=== PATIENT | male | born 1985 | race Caucasian/White ===

== ENCOUNTER 2021-04-19 08:24 | Emergency (ER) | payer SELFPAY ==
--- NOTE | 2021-04-19 08:54 | DI.RAD.S_ITS ---
PROCEDURE: XR ANKLE RT MIN 3V INDICATIONS: pain after twisting injury TECHNIQUE: 3 views of the ankle were acquired. COMPARISON: None. FINDINGS: Bones: There is an oblique fracture of the distal fibular metaphysis extending into the mortise joint with minimal displacement. No widening of the medial clear space is seen. Possible tiny minimally displaced fracture fragment of the posterior malleolus seen on lateral view. A small plantar calcaneal spur is present. Soft tissues: Multiple ossifications are seen projecting over the mortise joint, consistent with osteochondromatosis. Soft tissue edema is seen surrounding the ankle. IMPRESSION: 1. Minimally displaced oblique intra-articular fracture of the distal fibula. 2. Suspected tiny minimally displaced intra-articular fracture of the posterior tibia. 3. Synovial osteochondromatosis. Dictated by: Santiago Allen M.D. on 04/19/2021 at 9:15 Approved by: Santiago Allen M.D. on 04/19/2021 at 9:18
--- NOTE | 2021-04-19 08:54 | ED.GENADULT ---
HPI - General Adult General Chief complaint: Extremity Injury, Lower Stated complaint: rolled ankle t-4 Time Seen by Provider: 04/19/21 08:39 Source: patient Mode of arrival: Ambulatory Limitations: no limitations History of Present Illness HPI narrative: Patient is a 35-year-old male who approximately 4 days ago rolled his right ankle while at work. He has been ambulatory on it since then but has had swelling and bruising and difficulty walking. No specific injury in the past. No knee tenderness. Has had to wear a slipper because of the swelling Related Data Allergies Allergy/AdvReac Type Severity Reaction Status Date / Time Tetanus Vaccines and Toxoid Allergy Severe anaphylaxis Verified 04/19/21 10:28 [TETANUS VACCINES AND TOXOID] Review of Systems Musculoskeletal Musculoskeletal: Reports system reviewed and no additional complaints, except as documented and Reports as per HPI Integumentary/Breasts Skin/Breast: Reports system reviewed and no additional complaints, except as documented and Reports as per HPI Neurologic Neurologic: Reports system reviewed and no additional complaints, except as documented and Reports as per HPI Hematologic/Lymphatic On Anticoagulants: No Patient History Medical History Current smoker (03/13/17) Lipoma of head (03/13/17) Family History (Updated 03/15/17 @ 00:00 by Conversion Provider) Mother Age: 62 MS (multiple sclerosis) Cervical cancer Social History (Updated 04/19/21 @ 09:14 by Vaughn Lerma DO) lives independently: Yes Smoking Status: Current every day smoker Exam Initial Vital Signs Initial Vital Signs: Vital Signs Temperature 98.2 F 04/19/21 09:06 Pulse Rate 68 04/19/21 09:06 Respiratory Rate 18 04/19/21 09:06 Blood Pressure 136/86 04/19/21 09:06 Pulse Oximetry 99 04/19/21 09:06 Cardio Pulses: dorsalis pedis present on the right Skin Other: Bruising along the lateral aspect of the right foot and along the toes. Neuro Sensory Exam: no sensory deficits noted Extrem Other: No proximal fibula tenderness. Has tenderness to palpation along the lateral malleolus. Mild tenderness along the medial malleolus. Achilles tendon is intact. No tenderness along the Lisfranc joint. No tenderness along the 5th metatarsal. Psych Appearance: grossly normal and well kempt Procedures Orthopedic Splinting/Casting Injury #1: Side: right Lower Extremity Injury Location: ankle Lower Extremity Immobilizer: posterior splint and stirrup splint Other Orthopedic Equipment: crutches Post splinting neuro exam: intact Post splinting vascular exam: intact Placed by: Provider Course Orders Ordered: ED Orders 04/19/21 08:54 XR ankle RT min 3V Stat 04/19/21 09:26 CT LE RT wo con Stat Vital Signs Vital signs: Vital Signs - 8 hr 04/19/21 09:06 Temperature 98.2 F Pulse Rate 68 Respiratory Rate 18 Blood Pressure 136/86 Pulse Oximetry 99 Medical Decision Making Imaging Data Extremity x-ray #1: Radiologist's Impression: [address] [address] XRay Report Signed Patient: Jarvis Patel MR#: [id number] : 1985 Acct:[id number] Age/Sex: 35 / M Date of Service: 04/19/21 Loc: ED Accession Number: [id number] ?? Procedure: XR ankle RT min 3V Ordering Provider: Vaughn Lerma D.O. PROCEDURE:? XR ANKLE RT MIN 3V ? INDICATIONS:? pain after twisting injury ? TECHNIQUE:? 3 views of the ankle were acquired.? ? COMPARISON:? None. ? FINDINGS:? ? Bones:? There is an oblique fracture of the distal fibular metaphysis extending into the mortise joint with minimal displacement.? No widening of the medial clear space is seen.? Possible tiny minimally displaced fracture fragment of the posterior malleolus seen on lateral view.? A small plantar calcaneal spur is present. ? Soft tissues:? Multiple ossifications are seen projecting over the mortise joint, consistent with osteochondromatosis.? Soft tissue edema is seen surrounding the ankle. ? ? IMPRESSION:? 1. Minimally displaced oblique intra-articular fracture of the distal fibula. 2. Suspected tiny minimally displaced intra-articular fracture of the posterior tibia. 3. Synovial osteochondromatosis.? Dictated by: Santiago Allen M.D. on 04/19/2021 at 9:15 ? ? Approved by: Santiago Allen M.D. on 04/19/2021 at 9:18? CT LE: Radiologist's Impression: [address] [address] [address] Scan Report Signed Patient: Jarvis Patel MR#: [id number] : 1985 Acct:[id number] Age/Sex: 35 / M Date of Service: 04/19/21 Loc: ED Accession Number: [id number] ?? Procedure: CT LE RT wo con Ordering Provider: Vaughn Lerma D.O. PROCEDURE:? CT LE RT WO CON ? INDICATIONS:? R ankle fracture ? TECHNIQUE:? Noncontrast 1-1.5 mm axial sections acquired from above the tibiotalar joint to the bottom of the calcaneus, with coronal and sagittal reformats.? ? COMPARISON:? [facility], CR, XR ANKLE RT MIN 3V, 04/19/2021, 8:55. ? FINDINGS:? Image quality:? Excellent.? ? Bones:? There is a minimally displaced oblique fracture of the distal fibular metaphysis extending into the mortise joint.? The distal fracture fragment is displaced by up to 2 mm posteriorly and laterally.? There appears to be a possible ossified loose body within the distal portion of the fracture line. ? A small fracture line is seen at the posterior medial aspect of the lateral tibial plateau extending into the tibiotalar articular surface without step-off at the articular surface.? Some of the margins of this fracture appear to be corticated, and this could represent a subacute or chronic injury.? Similarly, a linear lucency is seen at the anterolateral aspect of the tibial plafond and with partial osseous bridging that represent the sequela of a prior injury. ? A well-defined lucency is seen within the medial tibia with thin sclerotic margins and extension to the medial cortex, likely representing degenerative cystic changes or intraosseous ganglion. ? Soft tissues:? Multiple ossified intra-articular loose bodies are seen surrounding the ankle, consistent with synovial osteochondromatosis.? Calcifications also extend into the sinus tarsi.? The articular cartilages, ligaments, and tendons are not well evaluated with CT.? The musculature of the foot and lower leg are normal in bulk.? Diffuse subcutaneous soft tissue edema is seen throughout the ankle. ? IMPRESSION:? 1. Minimally displaced acute intra-articular fracture of the distal fibula with up to 2 mm displacement.? A small ossified loose body appears to be located within the distal fracture line. ? 2. Small nondisplaced fractures of the posterior medial tibial plafond and anterolateral tibial plafond appear to have healing changes and may be subacute or chronic. ? 3. Numerous ossified loose bodies surrounding the ankle are most likely secondary to primary or secondary synovial osteochondromatosis. ? 4. Circumscribed lucency in the medial talar dome most likely represents degenerative cystic changes or an intraosseous ganglion. ? ? Dictated by: Santiago Allen M.D. on 04/19/2021 at 9:52 ? ? Approved by: Santiago Allen M.D. on 04/19/2021 at 10:05? MDM Narrative Medical decision making narrative: Patient does have an obvious fibula fracture. There was some concern on the x-ray about a tibia fracture as well. He does have tenderness over the posterior portion of his tibia and also over the medial malleolus. The CT scan was performed which showed findings that could be consistent with a old injury however given the location of his discomfort there is some concern about an acute injury as well. Because of this he was placed in a splint. Will be made nonweightbearing. He was given follow-up with Orthopedics. He was given return precautions. He expressed understanding and agreement. Discharge Plan Departure Patient Disposition: Home Clinical Impression: Ankle fracture, right Instructions: How to Use Crutches, DI for Ankle Fracture, How to Take Care of Your Splint Activity Restrictions/Additional Instructions: Because of the suspicion for a tibia fracture we placed the splint to protect this. You should be nonweightbearing on your right ankle. The splint that was placed today should be kept clean and dry. Treat it like a cast. Call the Orthopedic Department at the number provided below for a follow-up in the next week. Return to the emergency department for any new or worsening symptoms Referrals: Nataliya Bonner MD [Physician] -
[2021-04-19 09:06] VITALS: BP 136/86; PULSE 68; RESP 18; TEMP 36.8; O2SAT 99; BMI 24.4
--- NOTE | 2021-04-19 09:26 | DI.CT.S_ITS ---
PROCEDURE: CT LE RT WO CON INDICATIONS: R ankle fracture TECHNIQUE: Noncontrast 1-1.5 mm axial sections acquired from above the tibiotalar joint to the bottom of the calcaneus, with coronal and sagittal reformats. COMPARISON: [facility], CR, XR ANKLE RT MIN 3V, 04/19/2021, 8:55. FINDINGS: Image quality: Excellent. Bones: There is a minimally displaced oblique fracture of the distal fibular metaphysis extending into the mortise joint. The distal fracture fragment is displaced by up to 2 mm posteriorly and laterally. There appears to be a possible ossified loose body within the distal portion of the fracture line. A small fracture line is seen at the posterior medial aspect of the lateral tibial plateau extending into the tibiotalar articular surface without step-off at the articular surface. Some of the margins of this fracture appear to be corticated, and this could represent a subacute or chronic injury. Similarly, a linear lucency is seen at the anterolateral aspect of the tibial plafond and with partial osseous bridging that represent the sequela of a prior injury. A well-defined lucency is seen within the medial tibia with thin sclerotic margins and extension to the medial cortex, likely representing degenerative cystic changes or intraosseous ganglion. Soft tissues: Multiple ossified intra-articular loose bodies are seen surrounding the ankle, consistent with synovial osteochondromatosis. Calcifications also extend into the sinus tarsi. The articular cartilages, ligaments, and tendons are not well evaluated with CT. The musculature of the foot and lower leg are normal in bulk. Diffuse subcutaneous soft tissue edema is seen throughout the ankle. IMPRESSION: 1. Minimally displaced acute intra-articular fracture of the distal fibula with up to 2 mm displacement. A small ossified loose body appears to be located within the distal fracture line. 2. Small nondisplaced fractures of the posterior medial tibial plafond and anterolateral tibial plafond appear to have healing changes and may be subacute or chronic. 3. Numerous ossified loose bodies surrounding the ankle are most likely secondary to primary or secondary synovial osteochondromatosis. 4. Circumscribed lucency in the medial talar dome most likely represents degenerative cystic changes or an intraosseous ganglion. Dictated by: Santiago Allen M.D. on 04/19/2021 at 9:52 Approved by: Santiago Allen M.D. on 04/19/2021 at 10:05
== END 2021-04-19 11:19 | disposition home or self-care (01) ==
PROVIDERS: Emergency Provider Emergency Medicine
DX: S82.831A Other fracture of upper and lower end of right fibula, initial encounter for closed fracture (principal); X50.1XXA Overexertion from prolonged static or awkward postures, initial encounter
CPT/HCPCS: 29515; 73610; 73700; 99283; 99284

== ENCOUNTER 2022-10-27 06:49 | Emergency (ER) | payer OTHER, MEDICAID, SELFPAY ==
[2022-10-27 06:55] VITALS: BP 158/99; PULSE 83; RESP 18; TEMP 36.7; O2SAT 99; BMI 25.7
--- NOTE | 2022-10-27 07:29 | PC.NURSE ---
Pt states he was at work yesterday and sneezed, states he heard a pop in his lower back and then he went down to his knees. Pt states he's taken ibuprofen but did not improve symptoms.
[2022-10-27 07:31] VITALS: PULSE 81; RESP 18; O2SAT 97
--- NOTE | 2022-10-27 08:20 | ED_ITS ---
HPI - Back Pain/Injury General Chief Complaint: Back Pain/Injury Stated Complaint: back pain Time Seen by Provider: 10/27/22 06:50 Source: patient Mode of arrival: Ambulatory Limitations: no limitations History of Present Illness HPI Narrative: This is a 37-year-old male with history tobacco abuse who has had chronic back pain on and off but yesterday at work had a very large sneeze and had a feeling of a pop and pain over his right lateral ribs. Patient states pain has been persistent any sort of movement makes it much worse, coughing sneezing increases his pain. He has a little bit of old bruising but he states that is much lower. Patient states he has not had any fevers or chills, no cold cough or congestion. Does not feel short of breath. He is pain with movement. Patient states he felt a pop. And had sudden increase in pain over the right lateral ribs. States the pain is not really in his midline or back area or in his lower back. He is had no numbness, tingling or weakness. Patient states uses tobacco, denies any other medical issues or daily medications. Denies any surgeries. Allergy to tetanus vaccine. Patient family request no narcotic pain medication. He has been using lifting belt. Related Data Previous Rx's Medication Instructions Recorded meloxicam 7.5 mg tablet 7.5 mg PO BID PRN pain #20 tabs 10/27/22 Allergies Allergy/AdvReac Type Severity Reaction Status Date / Time Tetanus Vaccines and Toxoid Allergy Severe anaphylaxis Verified 04/19/21 10:28 [TETANUS VACCINES AND TOXOID] Review of Systems Review of Systems ROS Unobtainable: All systems reviewed & are unremarkable except as noted in HPI and below Patient History Medical History Current smoker (03/13/17) Lipoma of head (03/13/17) Family History Mother Age: 63 MS (multiple sclerosis) Cervical cancer Social History lives independently: Yes Smoking Status: Current every day smoker Smoking Status: Current every day smoker tobacco type: cigarettes alcohol intake frequency: 3 or more drinks per day Alcohol type: beer Substance Use Type: does not use Exam Narrative Exam Narrative: GENERAL: Alert and oriented x three, male in [id number] distress. HEENT: Head normocephalic, atraumatic, EOMI, pupils reactive, face symmetric, moist mucous membranes NECK: Supple, full range of motion CARDIOVASCULAR: Regular rate and rhythm without murmurs, rubs or gallops. RESPIRATORY: Breath sounds equal bilaterally, no wheezes rales or rhonchi. Patient has tenderness over the right lateral ribs, there is a small amount of ecchymosis. Patient has pain with movement. ABDOMEN: Soft, nontender. Normoactive bowel sounds all 4 quadrants. No guarding or rebound, rigidity, no mass : No CVA tenderness BACK: No cervical, thoracic or lumbar vertebral point tenderness. Patient has slightly decreased range of motion. Patient's gait is normal. Muscle strength is 5/5 in upper lower extremities. Sensation intact in upper and lower extremities. EXTREMITIES: Normal range of motion, no clubbing or edema. Neurovascularly inta ct NEUROLOGICAL: Cranial nerves II through XII grossly intact. Moving all extremities SKIN: Warm, dry, no petechiae, no rashes or lesions. Initial Vital Signs Initial Vital Signs: Vital Signs Temperature 98.1 F 10/27/22 06:55 Pulse Rate 83 10/27/22 06:55 Respiratory Rate 18 10/27/22 06:55 Blood Pressure 158/99 H 10/27/22 06:55 Pulse Oximetry 99 10/27/22 06:55 Oxygen Delivery Method Room Air 10/27/22 06:55 Course Orders Ordered: Discontinued Medications Ketorolac Tromethamine (Ketorolac 30 Mg/Ml Vial) 30 mg IV NOW ONE Stop: 10/27/22 08:58 Last Admin: 10/27/22 09:27 Dose: 30 mg Documented By: CARLOS Vital Signs Vital signs: Vital Signs - 8 hr 10/27/22 06:55 10/27/22 07:31 Temperature 98.1 F Pulse Rate 83 81 Respiratory Rate 18 18 Blood Pressure 158/99 H Pulse Oximetry 99 97 Oxygen Delivery Method Room Air Room Air MDM - Back Pain/Injury MDM Narrative Medical decision making narrative: This is a 37-year-old male who has had some chronic back issues but had a large sneeze and now has right rib pain and felt a pop. He has point tenderness consistent with either small intercostal muscle tear or rib fracture. He does have a little bit of bruising on his flank but it is spotty greenish and appears to be much older and not over the area. Patient has history of tobacco abuse. Denies other medical issues. He has had chronic back issues but location is different. He is not take anything for pain today he has been using a weight lifting belt to help with his symptoms. Patient discussed risks versus benefits of x-ray imaging. He elects to pursue chest x-ray discussed likely would not be able to see rib fracture unless it is clearly displaced. Clinical exam is most consistent with this diagnosis. Plan for pain medication, patient and family would like to avoid narcotics. Discharge Plan Departure Patient Disposition: Home Clinical Impression: Fracture of rib of right side Instructions: DI for Rib Fracture Activity Restrictions/Additional Instructions: Please follow-up recheck if your symptoms are not improving over time. I suspect you have a contusion or small rib fracture causing your pain. Broken bones take 8-12 weeks to fully heal but you should start to have improvement over the next 2-3 weeks. Use incentive spirometer once hourly while awake. You can take Tylenol up to a 1000 mg every 6 hours as needed. You can take meloxicam 1 tablet every 12 hours as needed for pain. Do not take other NSAIDs such as ibuprofen, Aleve or naproxen with this medication. You can use topical lidocaine patches to the affected area Prescription sent to [facility] in [place] Please return for new or worsening symptoms, new chest pain, shortness of breath, lightheadedness or passing out, new bruising, persistent vomiting, new weakness numbness tingling or other new or concerning changes. Prescriptions: New meloxicam 7.5 mg tablet 7.5 mg PO BID PRN (Reason: pain) Qty: 20 0RF Stand Alone Forms: Patient Portal/API
--- NOTE | 2022-10-27 08:57 | DI.RAD.S_ITS ---
PROCEDURE: XR CHEST 2V INDICATIONS: right lateral rib pain, s/p sneeze TECHNIQUE: 2 views of the chest were acquired. COMPARISON: [facility], , CHEST 2 VIEW, 10/13/2010, 14:08. [facility], , CHEST 2 VIEW, 10/08/2010, 9:21. FINDINGS: Surgical changes and devices: None. Lungs and pleura: Lungs are clear. No pleural effusions or pneumothorax. Mediastinum: Mediastinal contours are normal. Heart size is normal. Bones and chest wall: No suspicious bony abnormalities. Soft tissues appear unremarkable. IMPRESSION: No acute abnormality. Dictated by: Isrrael Starks M.D. on 10/27/2022 at 9:18 Approved by: Isrrael Starks M.D. on 10/27/2022 at 9:19
[2022-10-27] MEDS: KETOROLAC 30 MG/ML VIAL IV (09:27)
[2022-10-27 09:43] VITALS: PULSE 68; RESP 18; O2SAT 97
== END 2022-10-27 09:44 | disposition home or self-care (01) ==
PROVIDERS: Emergency Provider Emergency Medicine
DX: S22.31XA Fracture of one rib, right side, initial encounter for closed fracture (principal); X58.XXXA Exposure to other specified factors, initial encounter
CPT/HCPCS: 71046; 96374; 99283; 99284; J1885